=== PATIENT | female | born 1995 | race Caucasian/White ===

== ENCOUNTER 2021-07-18 18:10 | Emergency (ER) | payer OTHER ==
[~2021-07-18] VITALS: Ht 167.6 cm; Wt 65.9 kg
[2021-07-18 18:28] VITALS: BP 116/80
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
== END 2021-07-18 20:10 | disposition home or self-care (01) ==
LOC: ER 18:10
DX: M25.511 Pain in right shoulder (principal); M54.50 Low back pain, unspecified; G89.11 Acute pain due to trauma; Z88.5 Allergy status to narcotic agent; Z88.6 Allergy status to analgesic agent; Z88.8 Allergy status to other drugs, medicaments and biological substances; V49.49XA Driver injured in collision with other motor vehicles in traffic accident, initial encounter; Y92.488 Other paved roadways as the place of occurrence of the external cause; Y93.89 Activity, other specified; Y99.8 Other external cause status
CPT/HCPCS: 72100; 73030; 99284